=== PATIENT | female | born 1975 | race Two or more races ===

== ENCOUNTER 2017-04-12 12:24 | Emergency (ER) | payer MEDICAID ==
[~2017-04-12] VITALS: Ht 162.6 cm; Wt 75.3 kg
[2017-04-12 12:36] VITALS: BP 111/68
== END 2017-04-12 14:12 | disposition home or self-care (01) ==
LOC: ER 12:24
DX: J03.90 Acute tonsillitis, unspecified (principal)

== ENCOUNTER 2017-10-31 15:15 | Emergency (ER) | payer MEDICAID ==
[~2017-10-31] VITALS: Ht 162.6 cm; Wt 76.2 kg
[2017-10-31 15:49] VITALS: BP 120/74
[2017-10-31] MEDS ORDERED: KETOROLAC TROMETH 60MG/2ML VIAL IM ONE (16:15)
== END 2017-10-31 16:32 | disposition home or self-care (01) ==
LOC: ER 15:20
DX: S39.012A Strain of muscle, fascia and tendon of lower back, initial encounter (principal); X50.0XXA Overexertion from strenuous movement or load, initial encounter; Y93.89 Activity, other specified; Y92.89 Other specified places as the place of occurrence of the external cause; Y99.8 Other external cause status

== ENCOUNTER 2024-03-30 16:44 | Emergency (ER) | payer MEDICAID, OTHER ==
[~2024-03-30] VITALS: Ht 165.1 cm; Wt 79.7 kg
[2024-03-30 17:25] VITALS: BP 102/78; PULSE 78; RESP 15; O2SAT 95
== END 2024-03-31 00:38 | disposition left against medical advice (07) ==
LOC: ER 16:44
DX: M79.10 Myalgia, unspecified site (principal); J02.9 Acute pharyngitis, unspecified; R05.9 Cough, unspecified; Z53.21 Procedure and treatment not carried out due to patient leaving prior to being seen by health care provider
CPT/HCPCS: 71046

== ENCOUNTER 2025-10-11 03:21 | Inpatient (IN) | payer MEDICAID ==
[~2025-10-11] VITALS: Ht 162.6 cm; Wt 78.0 kg
[2025-10-11 04:00] VITALS: PULSE 78; RESP 18; O2SAT 98
[2025-10-11] MEDS: ONDANSETRON HCL 4 MG/2 ML VIAL IV ONE (04:05)
[2025-10-11] MEDS: KETOROLAC TROMETH 30 MG/ML 1ML VIAL IV ONE (04:05)
[2025-10-11] MEDS: SODIUM CHLORIDE 0.9% 1,000 ML IV ONE (04:06)
--- NOTE | 2025-10-11 04:16 | DVH ---
MEDICAL RECORDS NUMBER: [id number] PROCEDURE: CT CT AB PEL WO CON-NO ORAL OR IV DATE: 10/11/2025 03:43 AM HISTORY: right flank pain TECHNIQUE: CT of the abdomen and pelvis is performed without IV contrast. CONTRAST: none Oral Contrast: No oral contrast was utilized. COMPARISON: None RADIATION DOSE INFORMATION: Automated exposure control dose reduction techniques were used. FINDINGS: Lung bases: Limited evaluation of the lung bases demonstrates no focal airspace process or pneumothorax. Mediastinum:Lower mediastinal structures appear unremarkable. Liver: The liver is normal in size. There is no focal liver lesion. Biliary ducts: There is no evidence of intrahepatic or extrahepatic biliary ductal dilatation. Gallbladder: No abnormality is seen of the gallbladder. Spleen: The spleen is normal in size without focal lesion. Stomach: The stomach appears unremarkable. Pancreas: The pancreas is unremarkable. Adrenal glands: The adrenal glands are unremarkable. 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 Stranding is seen around the right kidney. There is a 5 mm stone at the right ureteral pelvic junction. Left kidney and ureter appear unremarkable. Aorta and IVC: The aorta and IVC are patent and are normal in size. Mesenteric vessels: Major mesenteric vessels appear to be intact. Bowel: The visualized portions of the small and large bowel are normal in caliber. Appendix: The appendix is unremarkable. Pelvis:Pelvic structures appear unremarkable. Lymph nodes: There is no evidence of lymphadenopathy. Osseous structures: The osseous structures are intact. No lytic or blastic osseous lesion is noted. Free fluid/free air: None IMPRESSION: 1. Moderate right hydronephrosis with a 5 mm stone at the right ureteropelvic junction.
[2025-10-11] MEDS: TAMSULOSIN HYDROCHLORIDE 0.4 MG CAP PO ONE (04:41)
--- NOTE | 2025-10-11 04:52 | ED.PDOC ---
General HPI Comments 50 Y/O FEMALE PT COMES WITH C/C OF RIGHT SIDED FLANK PAIN THAT RADIATES TO BACK WITH N/V, DYSURIA, FREQUENY AND URGENCY OF URINATION. PATIENT REPORTS 3 WEEKS AGO WAS SEEN IN [place] DX WITH KIDNEY STONE WAS PRESCRIBED FLOMAX FOR 5 DAYS AND SYMPTOMS RESOLVED FOR A FEW WEEKS. DENIES FEVERS, CHILLS, CHEST PAIN, SOB, OR URINE COMPLAINTS Chief Complaint: Flank Pain Time Seen by MD: 03:33 Primary Care Provider: UNKNOWN Reviewed notes: Nurses Notes, Medications, Allergies Allergies: Coded Allergies: NO KNOWN ALLERGIES (Unverified , 02/20/16) Home Meds Active Scripts Ergocalciferol (VITAMIN D 80642 UNIT) 50,[place], [address] UNIT PO QWEEKLY, #8 CAP Prov:BETHANY GALDAMEZ 10/12/25 Metformin Hydrochloride (Metformin Hcl) 500 Mg Tab, 1 TAB PO BID for 30 Days, #60 TAB 3 Refills Prov:BETHANY GALDAMEZ 10/12/25 Naproxen (Naproxen) 375 Mg Tab, 1 TAB PO BID for 5 Days, #10 TAB Prov:ODALIS PURCELL 10/12/25 Cephalexin (KEFLEX CAPSULE) 250 Mg Cp, 1 CAP PO QID for 5 Days, #28 CAP Prov:ODALIS PURCELL 10/12/25 Tamsulosin Hcl (Tamsulosin Hcl) 0.4 Mg Cap, 1 CAP PO DAILY for 30 Days, #30 CAP 5 Refills Prov:ODALIS PURCELL 10/12/25 Information Source: Patient Mode of Arrival: Ambulatory Past Medical History PAST MEDICAL HISTORY: Denies Surgical History: Denies all surgeries DIRECTOR OF PUPIL PERSONNEL PROGRAM History: No Pertinent DIRECTOR OF PUPIL PERSONNEL PROGRAM History Family History Family History: Unknown Social History Smoker: Non-Smoker Alcohol: Denies ETOH Use Drugs: Denies Drug Use Lives In: Home All Other Systems: Reviewed and Negative (see hpi) Physical Exam General Appearance: No Apparent Distress, Normal HEENT: Pharynx Normal Neck: Full Range of Motion, Non-Tender Respiratory: Lungs Clear, No Respiratory Distress, Normal Breath Sounds Cardiovascular: No Edema, No JVD, No Murmur, No Gallop, Normal Peripheral Pulses, Regular Rate/Rhythm Breast Exam: Deferred Gastrointestinal: No Organomegaly, Non Tender, No Pulsatile Mass, Normal Bowel Sounds, Soft, Other (TPP over Right Flank. NEG CVS Tenderness ) Genitalia: Deferred Pelvic: Deferred Rectal: Deferred Extremities: Normal capillary refill, Normal range of motion, No pedal edema Musculoskeletal : Apperance: Normal Neurologic: Alert, No Motor Deficits, Normal Affect, Normal Mood, No Sensory Deficits Cerebellar Function: Normal Reflexes: NOT DONE Skin: Dry, Normal Color, Warm Lymphatic: No Adenopathy Was a procedure done? Was a procedure done?: No Differential Diagnosis Kidney stone (Female): Pyelonephritis, Urinary obstruction, Urolithiasis Urinary Problem (Female): UTI X-Ray, Labs, Meds, VS Vital Signs Date Time Temp Pulse Resp B/P (MAP) Pulse Ox O2 Delivery O2 Flow Rate FiO2 10/11/25 06:59 98.2 79 16 142/82 (102) 94 98.2 10/11/25 04:00 99.1 78 18 137/58 (84) 98 99.1 10/11/25 04:00 78 18 98 Room Air* 0 21 10/11/25 03:29 98.6 82 16 151/84 96 98.6 Lab Test 10/11/25 05:03 10/11/25 03:33 Range/Units White Blood Count 10.0 4.4-10.8 10^3/uL Red Blood Count 4.44 4.0-5.20 10^6/uL Hemoglobin 12.7 12.2-16.2 g/dL Hematocrit 38.1 36.0-46.0 % Mean Corpuscular Volume 85.9 80.0-100.0 fL Mean Corpuscular Hemoglobin 28.7 28.0-32.0 pg Mean Corpuscular Hemoglobin Concent 33.5 32.0-36.0 g/dL Red Cell Distribution Width 13.9 11.8-14.3 % Platelet Count 238 140-450 10^3/uL Mean Platelet Volume 8.9 6.9-10.8 fL Neutrophils (%) (Auto) 81.0 H 37.0-80.0 % Lymphocytes (%) (Auto) 13.6 10.0-50.0 % Monocytes (%) (Auto) 4.2 0.0-12.0 % Eosinophils (%) (Auto) 0.7 0.0-7.0 % Basophils (%) (Auto) 0.5 0.0-2.0 % Neutrophils # (Auto) 8.1 1.6-8.6 10 ^3/uL Lymphocytes # (Auto) 1.4 0.4-5.4 10 ^3/uL Monocytes # (Auto) 0.4 0-1.3 10 ^3/uL Eosinophils # (Auto) 0.1 0-0.8 10 ^3/uL Basophils # (Auto) 0 0-0.2 10 ^3/uL Nucleated Red Blood Cells 0.1 % Sodium Level 139 136-145 mmol/L Potassium Level 4.4 3.5-5.1 mmol/L Chloride Level 102 98-107 mmol/L Carbon Dioxide Level 27 20-31 mmol/L Anion Gap 10 5-15 Blood Urea Nitrogen 13 9-23 mg/dL Creatinine 0.96 0.550-1.02 mg/dL Glomerular Filtration Rate Calc 73 >90 mL/min BUN/Creatinine Ratio 13.5 10.0-20.0 Serum Glucose 384 H 74-106 mg/dL Hemoglobin A1c 10.2 H <5.7 % A1C Calcium Level 9.4 8.7-10.4 mg/dL Total Bilirubin 0.3 0.2-1.0 mg/dL Aspartate Amino Transferase (AST) 75 H 13-40 U/L Alanine Aminotransferase (ALT) 122 H 7-40 U/L Alkaline Phosphatase 72 46-116 U/L Total Protein 7.3 5.7-8.2 g/dL Albumin 4.3 3.2-4.8 g/dL Urine Color Light-yellow Yellow Urine Clarity Clear Clear Urine pH 5.0 5.0-9.0 Urine Specific [place] 1.028 1.001-1.035 Urine Protein Negative Negative Urine Ketones Trace Negative Urine Blood 2+ H Negative /uL Urine Nitrite Negative Negative Urine Bilirubin Negative Negative Urine Urobilinogen Normal Negative mg/dL Urine Leukocyte Esterase Negative Negative /uL Urine RBC 17 0 - 4 /hpf Urine Microscopic WBC 4 0-5 /HPF Urine Squamous Epithelial Cells Few <5 /hpf Urine Bacteria None seen None Seen /hpf Urine Glucose 4+ H Normal mg/dL X-Ray, Labs, Meds, VS Comment Moderate hydronephrosis with a 5 mm stone at the right ureteropelvic junction. Patient continues with pain, failed out-patient treatment. Will place for admission for renal consult. Pending CBC and CMP. Patient agrees with plan of care. Images Reviewed?: Images reviewed and evaluated by me Time of 1ST Reevaluation: 03:33 Reevaluation 1ST: Unchanged Time of 2ND Reevaluation: 04:43 Reevaluation 2ND: Unchanged Patient Education/Counseling: Diagnosis, Treatment, Need For Follow Up Family Education/Counseling: No Family Present SEPSIS Sepsis Screen Date sepsis recognized/suspect: Oct 11, 2025 Time Sepsis recognized/suspect: 399 Recent Procedure: No On Antibiotic Therapy: No Respiratory Rate >20: No Heart Rate >90: No Temp<36 C (96.8 F) or >38.3 C: No SBP <90 or MAP <65 mmHG: No New Acute Mental Status Change: No Is the patient on CPAP, BIPAP,: No Physician Orders Ct Ab Pel Wo Con-No Oral Or Iv (10/11/25 03:33) Vital Signs Date Time Temp Pulse Resp B/P (MAP) Pulse Ox O2 Delivery O2 Flow Rate FiO2 10/11/25 06:59 98.2 79 16 142/82 (102) 94 98.2 10/11/25 04:00 99.1 78 18 137/58 (84) 98 99.1 10/11/25 04:00 78 18 98 Room Air* 0 21 10/11/25 03:29 98.6 82 16 151/84 96 98.6 Laboratory Tests Test 10/11/25 05:03 White Blood Count 10.0 10^3/uL (4.4-10.8) Departure 1 Departure Time of Disposition: 04:50 Impression: Primary Impression: Hydronephrosis with ureteropelvic junction (UPJ) obstruction Disposition: ADMITTED INPATIENT Condition: Guarded e-Prescriptions Ergocalciferol (VITAMIN D 46452 UNIT) 50,000 [place] [address] UNIT PO QWEEKLY, #8 CAP Prov: BETHANY GALDAMEZ 10/12/25 Metformin Hydrochloride (Metformin Hcl) 500 Mg Tab 1 TAB PO BID for 30 Days, #60 TAB 3 Refills Prov: BETHANY GALDAMEZ 10/12/25 Naproxen (Naproxen) 375 Mg Tab 1 TAB PO BID for 5 Days, #10 TAB Prov: ODALIS PURCELL 10/12/25 Cephalexin (KEFLEX CAPSULE) 250 Mg Cp 1 CAP PO QID for 5 Days, #28 CAP Prov: ODALIS PURCELL 10/12/25 Tamsulosin Hcl (Tamsulosin Hcl) 0.4 Mg Cap 1 CAP PO DAILY for 30 Days, #30 CAP 5 Refills Prov: ODALIS PURCELL RESIDENT 10/12/25 Discharged With: Self Critical Care Note Critical Care Time?: No Stability Stability form required: JONATHAN Marmolejo Oct 11, 2025 04:52
[2025-10-11 05:59] LABS: Hematocrit 38.1 % (36.0-46.0); Hemoglobin 12.7 g/dL (12.2-16.2); Mean Corpuscular Hemoglobin 28.7 pg (28.0-32.0); Mean Corpuscular Volume 85.9 fL (80.0-100.0); Nucleated Red Blood Cells % 0.1 %
[2025-10-11 06:10] LABS: Albumin 4.3 g/dL (3.2-4.8); Alkaline Phosphatase 72 U/L (46-116); Anion Gap 10 (5-15); BUN/Creatinine Ratio 13.5 (10.0-20.0); Blood Urea Nitrogen 13 mg/dL (9-23); Calcium 9.4 mg/dL (8.7-10.4); Carbon Dioxide 27 mmol/L (20-31); Chloride 102 mmol/L (98-107); Potassium 4.4 mmol/L (3.5-5.1); Sodium 139 mmol/L (136-145); Total Protein 7.3 g/dL (5.7-8.2)
[2025-10-11 06:11] LABS: Bilirubin, Total 0.3 mg/dL (0.2-1.0)
[2025-10-11 06:14] LABS: Urine Protein, UAD Negative (Negative)
[2025-10-11 06:14] LABS: Alanine Aminotransferase 122 U/L (7-40); Glucose 384 mg/dL (74-106)
[2025-10-11] MEDS ORDERED: DOCUSATE SOD 100 MG CAP PO PRN (08:45)
[2025-10-11] MEDS ORDERED: HYDROcodone-ACET 5/325MG TAB PO PRN (08:45)
[2025-10-11] MEDS ORDERED: MORPHINE SULFATE INJ 2 MG/ml SYRG IV PRN (08:45)
[2025-10-11] MEDS ORDERED: ONDANSETRON HCL 4 MG/2 ML VIAL IV PRN (08:45)
[2025-10-11 09:44] VITALS: PULSE 66; RESP 20; O2SAT 98
[2025-10-11] MEDS: SODIUM CHLORIDE 0.9% 1,000 ML IV SCH (09:44)
[2025-10-11] MEDS ORDERED: DEXTROSE (50%) 50ML SYRG IV PRN (10:15)
--- NOTE | 2025-10-11 10:21 | DVHHP2 ---
History of Present Illness Reason for Visit: Right flank pain History of Present Illness Yudelka Bermeo is a 50-year-old female who denies any significant past medical history, but also states she does not get seen regularly by a primary care provider, who came to the hospital for right sided flank pain. Patient was recently in [place] and diagnosed with a kidney stone. She was given a flomax for 5 days and her symptoms improved. She came to the ER early this morning due to the pain returning and worsening. Labs revelaled a blood sugar of 384. I asked the patient if she is diabetic and she said no. She also states that she does not follow up with a primary care provider. Past Surgical History: Other (left hand) Smoke: No ALCOHOL: none Drugs: None Lives: with Family Domestic Violence: Neg Review of Systems Constitutional: No: Fever, Chills, Sweats, Weakness, Malaise, Other Eyes: No: Pain, Vision change, Conjunctivae inflammation, Eyelid inflammation, Other, Redness ENT: No: Ear pain, Ear discharge, Nose pain, Nose discharge, Nose congestion, Mouth pain, Mouth swelling, Throat pain, Throat swelling, Other Respiratory: No: Cough, Dry, Shortness of breath, SOB with excertion, Wheezing, Hemoptysis, Pleuritic Pain, Sputum, Wheezing, Other Cardiovascular: No: Chest Pain, Palpitations, Orthopnea, Paroxysmal Noc. Dyspnea, Edema, Lt Headedness, Other Gastrointestinal: Nausea, Vomiting, Abdominal Pain (pelvis); No: Diarrhea, Constipation, Melena, Hematochezia, Other Genitourinary: No Dysuria, No Frequency, No Incontinence, No Hematuria, No Retention, No Other Musculoskeletal: back pain (right flank); No: other, neck pain, shoulder pain, arm pain, hand pain, leg pain, foot pain Skin: No: Rash, Lesions, Jaundice, Bruising, Other Neurological: No: Weakness, Numbness, Incoordination, Change in speech, Confusion, Seizures, Other Allergies: Coded Allergies: NO KNOWN ALLERGIES (Unverified , 02/20/16) Medications Current Medications Medications Dose Ordered Sig/Wil Route Start Time Stop Time Status Last Admin Dose Admin Sodium Chloride 1,000 ml @ 100 mls/hr Q10H IV 10/11/25 08:45 UNV Acetaminophen/ Hydrocodone Bitart 1 tab Q4HP PRN PO 10/11/25 08:45 UNV Ondansetron HCl 4 mg Q4HP PRN IV 10/11/25 08:45 UNV Docusate Sodium 100 mg BIDPRN PRN PO 10/11/25 08:45 UNV Acetaminophen 650 mg Q6HP PRN PO 10/11/25 08:45 UNV Morphine Sulfate 2 mg Q4HPRN PRN IV 10/11/25 08:45 UNV Exam Vital Signs Vital Signs Date Time Temp Pulse Resp B/P (MAP) Pulse Ox O2 Delivery O2 Flow Rate FiO2 10/11/25 06:59 98.2 79 16 142/82 (102) 94 98.2 10/11/25 04:00 Room Air* 0 21 General Appearance: Alert, Oriented X3, Cooperative, moderate distress HEENT: Atraumatic, PERRLA, Mucous membr. moist/pink Respiratory: Clear to auscultation, Normal air movement Cardiovascular: Regular rate, Normal S1, Normal S2, No murmurs Abdominal: Normal bowel sounds, Soft, Other (right flank pain that radiates to right pelvis) Extremities: No clubbing, No cyanosis, No edema, Normal pulses, No tenderness/ swelling Skin: No rashes, No breakdown, No significant lesion Neuro: Normal gait, Normal speech, Strength at 5/5 X4 ext, Normal tone Psych/Mental Status: Mental status NL, Mood NL Labs/Xrays Labs Test 10/11/25 05:03 10/11/25 03:33 Range/Units White Blood Count 10.0 4.4-10.8 10^3/uL Red Blood Count 4.44 4.0-5.20 10^6/uL Hemoglobin 12.7 12.2-16.2 g/dL Hematocrit 38.1 36.0-46.0 % Mean Corpuscular Volume 85.9 80.0-100.0 fL Mean Corpuscular Hemoglobin 28.7 28.0-32.0 pg Mean Corpuscular Hemoglobin Concent 33.5 32.0-36.0 g/dL Red Cell Distribution Width 13.9 11.8-14.3 % Platelet Count 238 140-450 10^3/uL Mean Platelet Volume 8.9 6.9-10.8 fL Neutrophils (%) (Auto) 81.0 H 37.0-80.0 % Lymphocytes (%) (Auto) 13.6 10.0-50.0 % Monocytes (%) (Auto) 4.2 0.0-12.0 % Eosinophils (%) (Auto) 0.7 0.0-7.0 % Basophils (%) (Auto) 0.5 0.0-2.0 % Neutrophils # (Auto) 8.1 1.6-8.6 10 ^3/uL Lymphocytes # (Auto) 1.4 0.4-5.4 10 ^3/uL Monocytes # (Auto) 0.4 0-1.3 10 ^3/uL Eosinophils # (Auto) 0.1 0-0.8 10 ^3/uL Basophils # (Auto) 0 0-0.2 10 ^3/uL Nucleated Red Blood Cells 0.1 % Sodium Level 139 136-145 mmol/L Potassium Level 4.4 3.5-5.1 mmol/L Chloride Level 102 98-107 mmol/L Carbon Dioxide Level 27 20-31 mmol/L Anion Gap 10 5-15 Blood Urea Nitrogen 13 9-23 mg/dL Creatinine 0.96 0.550-1.02 mg/dL Glomerular Filtration Rate Calc 73 >90 mL/min BUN/Creatinine Ratio 13.5 10.0-20.0 Serum Glucose 384 H 74-106 mg/dL Calcium Level 9.4 8.7-10.4 mg/dL Total Bilirubin 0.3 0.2-1.0 mg/dL Aspartate Amino Transferase (AST) 75 H 13-40 U/L Alanine Aminotransferase (ALT) 122 H 7-40 U/L Alkaline Phosphatase 72 46-116 U/L Total Protein 7.3 5.7-8.2 g/dL Albumin 4.3 3.2-4.8 g/dL Urine Color Light-yellow Yellow Urine Clarity Clear Clear Urine pH 5.0 5.0-9.0 Urine Specific [place] 1.028 1.001-1.035 Urine Protein Negative Negative Urine Ketones Trace Negative Urine Blood 2+ H Negative /uL Urine Nitrite Negative Negative Urine Bilirubin Negative Negative Urine Urobilinogen Normal Negative mg/dL Urine Leukocyte Esterase Negative Negative /uL Urine RBC 17 0 - 4 /hpf Urine Microscopic WBC 4 0-5 /HPF Urine Squamous Epithelial Cells Few <5 /hpf Urine Bacteria None seen None Seen /hpf Urine Glucose 4+ H Normal mg/dL PROCEDURE: CT CT AB PEL WO CON-NO ORAL OR IV FINDINGS: Lung bases: Limited evaluation of the lung bases demonstrates no focal airspace process or pneumothorax. Mediastinum:Lower mediastinal structures appear unremarkable. Liver: The liver is normal in size. There is no focal liver lesion. Biliary ducts: There is no evidence of intrahepatic or extrahepatic biliary ductal dilatation. Gallbladder: No abnormality is seen of the gallbladder. Spleen: The spleen is normal in size without focal lesion. Stomach: The stomach appears unremarkable. Pancreas: The pancreas is unremarkable. Adrenal glands: The adrenal glands are unremarkable. Kidneys: Moderate right Powell nephrosis is seen. Stranding is seen around the right kidney. There is a 5 mm stone at the right ureteral pelvic junction. Left kidney and ureter appear unremarkable. Aorta and IVC: The aorta and IVC are patent and are normal in size. Mesenteric vessels: Major mesenteric vessels appear to be intact. Bowel: The visualized portions of the small and large bowel are normal in caliber. Appendix: The appendix is unremarkable. Pelvis:Pelvic structures appear unremarkable. Lymph nodes: There is no evidence of lymphadenopathy. Osseous structures: The osseous structures are intact. No lytic or blastic osseous lesion is noted. Free fluid/free air: None IMPRESSION: 1. Moderate right hydronephrosis with a 5 mm stone at the right ureteropelvic junction. SEPSIS Sepsis Screen Date sepsis recognized/suspect: Oct 11, 2025 Time Sepsis recognized/suspect: 399 Recent Procedure: No On Antibiotic Therapy: No Respiratory Rate >20: No Heart Rate >90: No Temp<36 C (96.8 F) or >38.3 C: No SBP <90 or MAP <65 mmHG: No New Acute Mental Status Change: No Is the patient on CPAP, BIPAP,: No Physician Orders Ct Ab Pel Wo Con-No Oral Or Iv (10/11/25 03:33) Admit (10/11/25 08:39) Code Status (10/11/25 08:39) Sodium Chloride 0.9% (10/11/25 08:45) Hydrocodone-Acet 5/325mg Tab (Sieper 5/32 (10/11/25 08:45) Ondansetron Hcl (Zofran) (10/11/25 08:45) Docusate Sodium Capsule (Colace Capsule) (10/11/25 08:45) Complete Blood Count (10/12/25 04:00) Comprehensive Metabolic Panel (10/12/25 04:00) Condition: Serious (10/11/25 08:39) Acetaminophen Tablet (Tylenol Tablet) (10/11/25 08:45) Morphine Sulfate Injection (10/11/25 08:45) Hemoglobin A1c (10/11/25 08:43) Vital Signs Date Time Temp Pulse Resp B/P (MAP) Pulse Ox O2 Delivery O2 Flow Rate FiO2 10/11/25 06:59 98.2 79 16 142/82 (102) 94 98.2 10/11/25 04:00 99.1 78 18 137/58 (84) 98 99.1 10/11/25 04:00 78 18 98 Room Air* 0 21 10/11/25 03:29 98.6 82 16 151/84 96 98.6 Laboratory Tests Test 10/11/25 05:03 White Blood Count 10.0 10^3/uL (4.4-10.8) Medications Medications Dose Ordered Sig/Wil Route Start Time Stop Time Status Last Admin Dose Admin Ketorolac Tromethamine 30 mg ONCE ONCE IV 10/11/25 03:45 10/11/25 03:46 DC 10/11/25 04:05 30 MG Ondansetron HCl 4 mg ONCE ONCE IV 10/11/25 03:45 10/11/25 03:46 DC 10/11/25 04:05 4 MG Sodium Chloride 1,000 ml @ 1,000 mls/hr Q1H ONCE IV 10/11/25 03:45 10/11/25 04:44 DC 10/11/25 04:06 1,000 MLS/HR Tamsulosin HCl 0.4 mg ONCE ONCE PO 10/11/25 04:45 10/11/25 04:46 DC 10/11/25 04:41 0.4 MG Assessment/Plan Assessment/Plan Assessment: Hydronephrosis with ureteropelvic junction (UPJ) obstruction, Hyperglycemia, Transaminitis, New diagnosis diabetes, Plan: Admit to Med-Surg, Urology consult, IV antibiotics, IV hydration, Flomax, Pain management, A1c, Accu checks AC&HS with sliding scale, Plan discussed with: Patient My Orders Orders - EFRAIN GAMEZ [employer] Procedure Category Date Status Time Admit ADMIT 10/11/25 Transmitted 08:39 Code Status CODE 10/11/25 Transmitted 08:39 Sodium Chloride 0.9% PHA 10/11/25 Logged 08:45 Hydrocodone-Acet PHA 10/11/25 Logged 5/325mg Tab (Sieper 08:45 Ondansetron Hcl PHA 10/11/25 Logged (Zofran) 08:45 Docusate Sodium PHA 10/11/25 Logged Capsule (Colace 08:45 Complete Blood Count LAB 10/12/25 Verified 04:00 Comprehensive LAB 10/12/25 Verified Metabolic Panel 04:00 Condition: Serious ALEXYS 10/11/25 In Process 08:39 Acetaminophen Tablet PHA 10/11/25 Logged (Tylenol Tablet) 08:45 Morphine Sulfate PHA 10/11/25 Logged Injection 08:45 Hemoglobin A1c LAB 10/11/25 In Process 08:43 Date of Service: Oct 11, 2025 Billing Provider: EFRAIN GAMEZ Common Visit Codes: [id number] INP/OBS CARE (MOD) EFRAIN GAMEZ Oct 11, 2025 10:21
[2025-10-11] MEDS: InsuLIN REG 1unit/0.01ml Soln (100units/ml) SC SCH ×2 (11:30→21:58)
[2025-10-11] MEDS: ACCU-CHEK COMFORT CURVE STRIP VI SCH (11:30)
--- NOTE | 2025-10-11 11:33 | DVHINCON2 ---
Date of service: Oct 11, 2025 Referring Physician Hospitalist Reason for Consultation right UPJ stone with moderate hydronephrosis History of Present Illness History Source: Patient, RN Notes, MD Notes Exam Limitations: No limitations HPI 50-year-old female who denies any significant past medical history, but also states she does not get seen regularly by a primary care provider, who came to the hospital for right flank pain. She was dx with kidney stones recently while in [place]. CT revealed a 5 mm right upj stone with moderate hydro. renal function is preserved. no evidence of sepsis. A1c 10.2 pt denies hx of diabetes. Review of Systems Gastrointestinal: Abdominal Pain Genitourinary: Frequency, Pain H&P Exam Vital Signs Vital Signs Date Time Temp Pulse Resp B/P (MAP) Pulse Ox O2 Delivery O2 Flow Rate FiO2 10/11/25 09:44 66 20 98 Room Air* 0 21 10/11/25 09:43 97.9 140/79 (99) 97.9 General Appeara: Well developed, Well nourished, Normal Appearance Neuro/Mental St: Alert, Oriented Appearance: Appropriate appearance, Appropriate insight Eye contact/ Speech: Cooperative, Good eye contact, Normal speech Skin Exam: Normal inspection, Normal color, Warm/dry Labs/Xrays [place] [address] Ph: [phone] DIAGNOSTIC IMAGING Diagnostic Imaging Report : [id number] Signed PATIENT: CODY RYAN RACCT: [id number] UNIT: [id number] : 1975 LOC: ER ROOM / BED: / AGE / SEX: 50 / F ADM STATUS: REG ER SERVICE 0333 ORDERING PHYSICIAN: JONATHAN MORA PROCEDURE(s): ABPL - CT AB PEL WO CON-NO ORAL OR IV REASON: right flank pain ORDER NUMBER(s): [id number], ACCESSION NUMBER(s): [id number] MEDICAL RECORDS NUMBER: [id number] PROCEDURE: CT CT AB PEL WO CON-NO ORAL OR IV DATE: 10/11/2025 03:43 AM HISTORY: right flank pain TECHNIQUE: CT of the abdomen and pelvis is performed without IV contrast. CONTRAST: none Oral Contrast: No oral contrast was utilized. COMPARISON: None RADIATION DOSE INFORMATION: Automated exposure control dose reduction techniques were used. FINDINGS: Lung bases: Limited evaluation of the lung bases demonstrates no focal airspace process or pneumothorax. Mediastinum:Lower mediastinal structures appear unremarkable. Liver: The liver is normal in size. There is no focal liver lesion. Biliary ducts: There is no evidence of intrahepatic or extrahepatic biliary ductal dilatation. Gallbladder: No abnormality is seen of the gallbladder. Spleen: The spleen is normal in size without focal lesion. Stomach: The stomach appears unremarkable. Pancreas: The pancreas is unremarkable. Adrenal glands: The adrenal glands are unremarkable. Kidneys: Moderate right [place] nephrosis is seen. Stranding is seen around the right kidney. There is a 5 mm stone at the right ureteral pelvic junction. Left kidney and ureter appear unremarkable. Aorta and IVC: The aorta and IVC are patent and are normal in size. Mesenteric vessels: Major mesenteric vessels appear to be intact. Bowel: The visualized portions of the small and large bowel are normal in caliber. Appendix: The appendix is unremarkable. Pelvis:Pelvic structures appear unremarkable. Lymph nodes: There is no evidence of lymphadenopathy. Osseous structures: The osseous structures are intact. No lytic or blastic osseous lesion is noted. Free fluid/free air: None IMPRESSION: 1. Moderate right hydronephrosis with a 5 mm stone at the right ureteropelvic junction. ATED BY: JEFF LEDBETTER MD DICTATED DATE/TIME: 10/11/25412 SIGNED BY: JEFF LEDBETTER MD SIGNED DATE/TIME: 10/11/25412 CC: Labs Test 10/11/25 05:03 10/11/25 03:33 Range/Units White Blood Count 10.0 4.4-10.8 10^3/uL Red Blood Count 4.44 4.0-5.20 10^6/uL Hemoglobin 12.7 12.2-16.2 g/dL Hematocrit 38.1 36.0-46.0 % Mean Corpuscular Volume 85.9 80.0-100.0 fL Mean Corpuscular Hemoglobin 28.7 28.0-32.0 pg Mean Corpuscular Hemoglobin Concent 33.5 32.0-36.0 g/dL Red Cell Distribution Width 13.9 11.8-14.3 % Platelet Count 238 140-450 10^3/uL Mean Platelet Volume 8.9 6.9-10.8 fL Neutrophils (%) (Auto) 81.0 H 37.0-80.0 % Lymphocytes (%) (Auto) 13.6 10.0-50.0 % Monocytes (%) (Auto) 4.2 0.0-12.0 % Eosinophils (%) (Auto) 0.7 0.0-7.0 % Basophils (%) (Auto) 0.5 0.0-2.0 % Neutrophils # (Auto) 8.1 1.6-8.6 10 ^3/uL Lymphocytes # (Auto) 1.4 0.4-5.4 10 ^3/uL Monocytes # (Auto) 0.4 0-1.3 10 ^3/uL Eosinophils # (Auto) 0.1 0-0.8 10 ^3/uL Basophils # (Auto) 0 0-0.2 10 ^3/uL Nucleated Red Blood Cells 0.1 % Sodium Level 139 136-145 mmol/L Potassium Level 4.4 3.5-5.1 mmol/L Chloride Level 102 98-107 mmol/L Carbon Dioxide Level 27 20-31 mmol/L Anion Gap 10 5-15 Blood Urea Nitrogen 13 9-23 mg/dL Creatinine 0.96 0.550-1.02 mg/dL Glomerular Filtration Rate Calc 73 >90 mL/min BUN/Creatinine Ratio 13.5 10.0-20.0 Serum Glucose 384 H 74-106 mg/dL Hemoglobin A1c 10.2 H <5.7 % A1C Calcium Level 9.4 8.7-10.4 mg/dL Total Bilirubin 0.3 0.2-1.0 mg/dL Aspartate Amino Transferase (AST) 75 H 13-40 U/L Alanine Aminotransferase (ALT) 122 H 7-40 U/L Alkaline Phosphatase 72 46-116 U/L Total Protein 7.3 5.7-8.2 g/dL Albumin 4.3 3.2-4.8 g/dL Urine Color Light-yellow Yellow Urine Clarity Clear Clear Urine pH 5.0 5.0-9.0 Urine Specific [place] 1.028 1.001-1.035 Urine Protein Negative Negative Urine Ketones Trace Negative Urine Blood 2+ H Negative /uL Urine Nitrite Negative Negative Urine Bilirubin Negative Negative Urine Urobilinogen Normal Negative mg/dL Urine Leukocyte Esterase Negative Negative /uL Urine RBC 17 0 - 4 /hpf Urine Microscopic WBC 4 0-5 /HPF Urine Squamous Epithelial Cells Few <5 /hpf Urine Bacteria None seen None Seen /hpf Urine Glucose 4+ H Normal mg/dL Assessment/Plan Problem List: (1) Hydronephrosis with ureteropelvic junction (UPJ) obstruction Plan 50 yo female with newly diagnosed DMII c/o right flank pain found to have right upj stone measuring 5 mm with moderate hydro and normal renal function. Pain is controlled at this time no evidence of sepsis. expulsive therapy pain meds prn aggressive fluids strain urine lithotripsy vs nephrostomy vs outpt bladder US to check for jets Plan discussed with: Patient, Other BRENT PORTER NP Oct 11, 2025 11:33
[2025-10-11] MEDS: MANNITOL FTV 25% 12.5 GM/50 ML 50 ML IV ONE (13:51)
[2025-10-11] MEDS: TAMSULOSIN HYDROCHLORIDE 0.4 MG CAP PO SCH (18:20)
[2025-10-11 18:23] VITALS: RESP 18; O2SAT 99
[2025-10-11 21:00] VITALS: BP 130/63; PULSE 83; RESP 18; TEMP 98.4; O2SAT 96
[2025-10-12 01:00] VITALS: BP 122/61; PULSE 80; RESP 18; TEMP 98.7; O2SAT 93
[2025-10-12 05:00] VITALS: BP 122/67; PULSE 83; RESP 17; TEMP 98.6; O2SAT 92
[2025-10-12 07:19] LABS: Hematocrit 35.7 % (36.0-46.0); Hemoglobin 12.2 g/dL (12.2-16.2); Mean Corpuscular Hemoglobin 29.1 pg (28.0-32.0); Mean Corpuscular Volume 84.9 fL (80.0-100.0); Nucleated Red Blood Cells % 0.2 %
[2025-10-12 08:03] LABS: Albumin 3.8 g/dL (3.2-4.8); Alkaline Phosphatase 69 U/L (46-116); Anion Gap 12 (5-15); BUN/Creatinine Ratio 11.7 (10.0-20.0); Blood Urea Nitrogen 12 mg/dL (9-23); Calcium 8.8 mg/dL (8.7-10.4); Carbon Dioxide 24 mmol/L (20-31); Chloride 105 mmol/L (98-107); Potassium 3.7 mmol/L (3.5-5.1); Sodium 141 mmol/L (136-145); Total Protein 6.3 g/dL (5.7-8.2)
[2025-10-12 08:04] LABS: Alanine Aminotransferase 84 U/L (7-40); Bilirubin, Total 0.4 mg/dL (0.2-1.0); Glucose 188 mg/dL (74-106)
[2025-10-12 09:00] VITALS: BP 124/68; PULSE 90; RESP 16; TEMP 98.3; O2SAT 94
[2025-10-12 09:30] LABS: Magnesium 1.7 mg/dL (1.6-2.6)
--- NOTE | 2025-10-12 09:48 | DVH ---
CLINICAL HISTORY: Rule out hepatic steatosis/cirrhosis TECHNIQUE: Transabdominal sonogram was performed of the right upper quadrant. COMPARISON: None FINDINGS: The liver is normal in echogenicity. There is no focal parenchymal abnormality. No intrahepatic biliary ductal dilatation is present. The liver measures 21.4 cm. The gallbladder contains stones with no wall thickening or pericholecystic fluid. The sonographic jiang's sign was reported to be absent. The common bile duct is borderline dilated, measuring 6.7 mm. The visualized pancreas is grossly unremarkable. The right kidney measures 13.6 cm and the left kidney measures 11.6 cm in diameter. There is ddxt-pu-dwdaimpf right hydronephrosis. Is no focal parenchymal abnormality. IMPRESSION: Zlzh-gm-loszllzl right hydronephrosis. Diffuse hepatic steatosis. Cholelithiasis. Borderline dilated 6.7 mm common duct. Please correlate with laboratory values and consider MRCP if warranted.
--- NOTE | 2025-10-12 11:44 | DVHPNRES ---
Progress Note Date Seen: Oct 12, 2025 Resident Creating Document: BETHANY GALDAMEZ RESIDENT Subjective Review of Systems Yudelka Bermeo is a 50-year-old female who denies any significant past medical history, but also states she does not get seen regularly by a primary care provider, who came to the hospital for right sided flank pain. Patient was recently in [place] and diagnosed with a kidney stone. She was given a flomax for 5 days and her symptoms improved. She came to the ER early this morning due to the pain returning and worsening. Labs revelaled a blood sugar of 384. I asked the patient if she is diabetic and she said no. She also states that she does not follow up with a primary care provider. PMH- PSH- Allergy- Personal History/ Social History- Patient was seen today at the bedside. Patient Cardiovascular- deny acute chest pain or shortness of breath or cough or palpitation Respiratory denies cough or short of breath or wheezing Gastrointestinal- denies any rectal bleeding, nausea or vomiting Musculoskeletal-denies acute joint swelling or tenderness or redness Neurological- denies acute dysarthria, dysphagia, change in vision Psychiatry- denies depression or SI or HI Skin- denies acute rash or purpura Objective vital signs Vital Sign Date Time Temp Pulse Resp B/P (MAP) Pulse Ox O2 Delivery O2 Flow Rate FiO2 10/12/25 09:00 98.3 90 16 124/68 (86) 94 98.3 10/12/25 07:30 Room Air* 0 21 Total Intake and Output 10/11/25 10/11/25 10/12/25 15:00 23:00 07:00 Intake Total 1300 ml Balance 1300 ml medications Current Medications Medications Dose Ordered Sig/Wil Route Start Time Stop Time Status Last Admin Dose Admin Sodium Chloride 1,000 ml @ 100 mls/hr Q10H IV 10/11/25 08:45 10/12/25 03:21 100 MLS/HR Acetaminophen/ Hydrocodone Bitart 1 tab Q4HP PRN PO 10/11/25 08:45 Ondansetron HCl 4 mg Q4HP PRN IV 10/11/25 08:45 Docusate Sodium 100 mg BIDPRN PRN PO 10/11/25 08:45 Acetaminophen 650 mg Q6HP PRN PO 10/11/25 08:45 Morphine Sulfate 2 mg Q4HPRN PRN IV 10/11/25 08:45 Tamsulosin HCl 0.4 mg QPM PO 10/11/25 18:00 10/11/25 18:20 0.4 MG Diagnostic Test (Pha) 1 strip ACHS 10/11/25 11:30 10/12/25 06:11 1 STRIP Insulin Human Regular HS SC 10/11/25 22:00 10/11/25 21:58 6 UNITS Insulin Human Regular AC SC 10/11/25 11:30 10/12/25 06:17 3 UNITS Dextrose 50 ml UD PRN IV 10/11/25 10:15 Ceftriaxone Sodium 50 ml @ 100 mls/hr DAILY@09 IV 10/12/25 09:00 10/12/25 09:00 100 MLS/HR Insulin Glargine 10 units QAM SC 10/13/25 07:00 Examination General examination- HEENT- PEERLA, no acute nasal discharge Cardiovascular- S1-S2 audible, rate and rhythm regular, no murmur Respiratory- CTAB, no wheeze or rhonchi Gastrointestinal-nontender, bowel sound+. Nondistended Musculoskeletal-no acute joint swelling or tenderness or redness Lower extremity- Neurological- cranial nerves intact, no acute dysarthria or dysphagia Psychiatry- denies depression or SI or HI Skin- no acute rash or purpura laboratory and microbiology Laboratory Tests 10/12/25 06:44 Test 10/12/25 06:44 Range/Units Serum Glucose 188 H 74-106 mg/dL Problem List/Assessment/Plan Problem List/Assessment/Plan Goals of care, Code status ; discussed with >15 minutes PUD prophylaxis: DVT prophylaxis: Plan discussed with Dr , nursing staff, Total time spent on patient evaluation, chart review, assessment and plan, discussion discussion >35 minutes Plan discussed with: Patient, Other (RN) My Orders My Orders Orders - BETHANY GALDAMEZ Procedure Category Date Status Time Insulin Lantus PHA 10/13/25 In Process (Glargine) (Lantus) 07:00 LIVER US 10/12/25 Resulted 08:20 BETHANY GALDAMEZ Oct 12, 2025 11:44
[2025-10-12 12:30] VITALS: BP 130/68; PULSE 94; RESP 16; TEMP 98.5; O2SAT 95
[2025-10-12] MEDS: ERGOCALCIFEROL 50,000 UNIT(1.25MG) CAP PO SCH (12:51)
--- NOTE | 2025-10-12 13:21 | DVH ---
Exam: US BLADDER History: NEPHROLITHIASIS WITH HYDRONEPHROSIS Comparison: None Date: 10/12/2025 11:56 AM Technique: Grayscale and color Doppler ultrasound of the pelvis was obtained. Pre-and postvoid images of the bladder were obtained. Findings: Prevoid bladder is well distended and unremarkable. The postvoid bladder, demonstrates no significant post void residual. IMPRESSION: No significant post void residual noted. Distended bladder measuring 214 cc END IMPRESSION:
[2025-10-12] MEDS ORDERED: CEPH250C PO (16:35)
[2025-10-12] MEDS ORDERED: NAPR-957 PO (16:35)
[2025-10-12] MEDS ORDERED: TAMS0.4C39 PO (16:35)
[2025-10-12 16:53] VITALS: BP 135/66; PULSE 86; RESP 16; TEMP 98.7; O2SAT 95
[2025-10-12 17:00] VITALS: BP 135/66; PULSE 86; RESP 16; TEMP 98.7; O2SAT 95
[2025-10-12] MEDS: ACETAMINOPHEN 325 MG TAB PO PRN (18:13)
--- NOTE | 2025-10-12 20:50 | DVHDSRES ---
Discharge Summary Date of Admission Resident Creating Document: BETHANY GALDAMEZ RESIDENT Oct 11, 2025 at 08:39 Date of Discharge: Oct 12, 2025 Admitting Diagnosis Intractable abdominal pain due to Nephrolothiasis DM 2 with Hyperglycemia New one set Labs/Diagnostic Data: Laboratory Results Test 10/12/25 16:47 10/12/25 06:44 10/11/25 05:03 10/11/25 03:33 POC Glucose 195 mg/dl (70-106) White Blood Count 8.7 10^3/uL (4.4-10.8) Red Blood Count 4.20 10^6/uL (4.0-5.20) Hemoglobin 12.2 g/dL (12.2-16.2) Hematocrit 35.7 % (36.0-46.0) Mean Corpuscular Volume 84.9 fL (80.0-100.0) Mean Corpuscular Hemoglobin 29.1 pg (28.0-32.0) Mean Corpuscular Hemoglobin Concent 34.2 g/dL (32.0-36.0) Red Cell Distribution Width 13.6 % (11.8-14.3) Platelet Count 205 10^3/uL (140-450) Mean Platelet Volume 8.7 fL (6.9-10.8) Neutrophils (%) (Auto) 67.6 % (37.0-80.0) Lymphocytes (%) (Auto) 23.7 % (10.0-50.0) Monocytes (%) (Auto) 6.9 % (0.0-12.0) Eosinophils (%) (Auto) 1.3 % (0.0-7.0) Basophils (%) (Auto) 0.5 % (0.0-2.0) Neutrophils # (Auto) 5.9 10 ^3/uL (1.6-8.6) Lymphocytes # (Auto) 2.1 10 ^3/uL (0.4-5.4) Monocytes # (Auto) 0.6 10 ^3/uL (0-1.3) Eosinophils # (Auto) 0.1 10 ^3/uL (0-0.8) Basophils # (Auto) 0 10 ^3/uL (0-0.2) Nucleated Red Blood Cells 0.2 % Sodium Level 141 mmol/L (136-145) Potassium Level 3.7 mmol/L (3.5-5.1) Chloride Level 105 mmol/L (98-107) Carbon Dioxide Level 24 mmol/L (20-31) Anion Gap 12 (5-15) Blood Urea Nitrogen 12 mg/dL (9-23) Creatinine 1.03 mg/dL (0.550-1.02) Glomerular Filtration Rate Calc 67 mL/min (>90) BUN/Creatinine Ratio 11.7 (10.0-20.0) Serum Glucose 188 mg/dL (74-106) Calcium Level 8.8 mg/dL (8.7-10.4) Phosphorus Level 3.3 mg/dL (2.4-5.1) Magnesium Level 1.7 mg/dL (1.6-2.6) Total Bilirubin 0.4 mg/dL (0.2-1.0) Aspartate Amino Transferase (AST) 43 U/L (13-40) Alanine Aminotransferase (ALT) 84 U/L (7-40) Alkaline Phosphatase 69 U/L (46-116) Total Protein 6.3 g/dL (5.7-8.2) Albumin 3.8 g/dL (3.2-4.8) Vitamin B12 Level 401 pg/mL (211-911) Vitamin D 25-Hydroxy 27.1 ng/mL (30.0-100) Folic Acid 13.54 ng/mL (>5.38) Thyroid Stimulating Hormone (TSH) 2.44 uIU/mL (0.55-4.78) Hemoglobin A1c 10.2 % A1C (<5.7) Urine Color Light-yellow (Yellow) Urine Clarity Clear (Clear) Urine pH 5.0 (5.0-9.0) Urine Specific [place] 1.028 (1.001-1.035) Urine Protein Negative (Negative) Urine Ketones Trace (Negative) Urine Blood 2+ /uL (Negative) Urine Nitrite Negative (Negative) Urine Bilirubin Negative (Negative) Urine Urobilinogen Normal mg/dL (Negative) Urine Leukocyte Esterase Negative /uL (Negative) Urine RBC 17 /hpf (0 - 4) Urine Microscopic WBC 4 /HPF (0-5) Urine Squamous Epithelial Cells Few /hpf (<5) Urine Bacteria None seen /hpf (None Seen) Urine Glucose 4+ mg/dL (Normal) Other Laboratory Tests 10/12/25 06:44 Brief Hx & Hospital Course: Forman Guy, Yudelka is a 50-year-old female who denies any significant past medical history, but also states she does not get seen regularly by a primary care provider, who came to the hospital for right sided flank pain. Patient was recently in [place] and diagnosed with a kidney stone. She was given a flomax for 5 days and her symptoms improved. She came to the ER early this morning due to the pain returning and worsening. Labs revelaled a blood sugar of 384. I asked the patient if she is diabetic and she said no. She also states that she does not follow up with a primary care provider. Serum Glucose 384, HbA1c 10.2. CT Abdomen and Pelvis revealed Moderate right hydronephrosis with a 5 mm stone at the right ureteropelvic junction. Ultrasound of liver revealed -Ikop-kr-mecrxwsc right hydronephrosis. Diffuse hepatic steatosis. Cholelithiasis. Borderline dilated 6.7 mm common duct, Bladder Ultrasound No significant post void residual noted. Distended bladder measuring 214 cc. Patient was seen by Nephrology. Patient is being Discharged with Flomax, Ibuprofen and . Patient was adviced to folllow up at Discharge clinic, PCP and Urology. Hemodynamically stable on discharge. Operations or Procedures [place] [id number] Ph: [phone] DIAGNOSTIC IMAGING Diagnostic Imaging Report : [id number] Signed PATIENT: YUDELKA RYAN RACCT: [id number] UNIT: [id number] : 1975 LOC: ER ROOM / BED: / AGE / SEX: 50 / F ADM STATUS: REG ER SERVICE 0333 ORDERING PHYSICIAN: JONATHAN MORA PROCEDURE(s): ABPL - CT AB PEL WO CON-NO ORAL OR IV REASON: right flank pain ORDER NUMBER(s): [id number], ACCESSION NUMBER(s): [id number] MEDICAL RECORDS NUMBER: [id number] PROCEDURE: CT CT AB PEL WO CON-NO ORAL OR IV DATE: 10/11/2025 03:43 AM HISTORY: right flank pain TECHNIQUE: CT of the abdomen and pelvis is performed without IV contrast. CONTRAST: none Oral Contrast: No oral contrast was utilized. COMPARISON: None RADIATION DOSE INFORMATION: Automated exposure control dose reduction techniques were used. FINDINGS: Lung bases: Limited evaluation of the lung bases demonstrates no focal airspace process or pneumothorax. Mediastinum:Lower mediastinal structures appear unremarkable. Liver: The liver is normal in size. There is no focal liver lesion. Biliary ducts: There is no evidence of intrahepatic or extrahepatic biliary ductal dilatation. Gallbladder: No abnormality is seen of the gallbladder. Spleen: The spleen is normal in size without focal lesion. Stomach: The stomach appears unremarkable. Pancreas: The pancreas is unremarkable. Adrenal glands: The adrenal glands are unremarkable. Kidneys: Moderate right [place] nephrosis is seen. Stranding is seen around the right kidney. There is a 5 mm stone at the right ureteral pelvic junction. Left kidney and ureter appear unremarkable. Aorta and IVC: The aorta and IVC are patent and are normal in size. Mesenteric vessels: Major mesenteric vessels appear to be intact. Bowel: The visualized portions of the small and large bowel are normal in caliber. Appendix: The appendix is unremarkable. Pelvis:Pelvic structures appear unremarkable. Lymph nodes: There is no evidence of lymphadenopathy. Osseous structures: The osseous structures are intact. No lytic or blastic osseous lesion is noted. Free fluid/free air: None IMPRESSION: 1. Moderate right hydronephrosis with a 5 mm stone at the right ureteropelvic junction. ATED BY: JEFF LEDBETTER MD DICTATED DATE/TIME: 10/11/25412 SIGNED BY: JEFF LEDBETTER MD SIGNED DATE/TIME: 10/11/25412 CC: [place] [id number] Ph: [phone] DIAGNOSTIC IMAGING Diagnostic Imaging Report : [id number] Signed PATIENT: YUDELKA RYAN RACCT: [id number] UNIT: [id number] : 1975 LOC: OVERFLOW ROOM / BED: 1028-ER / A AGE / SEX: 50 / F ADM STATUS: ADM IN SERVICE 9 ORDERING PHYSICIAN: BETHANY GALDAMEZ RESIDENT PROCEDURE(s): LIVUS - LIVER REASON: Rule out hepatic steatosis/cirrhosis ORDER NUMBER(s): [id number], ACCESSION NUMBER(s): [id number] CLINICAL HISTORY: Rule out hepatic steatosis/cirrhosis TECHNIQUE: Transabdominal sonogram was performed of the right upper quadrant. COMPARISON: None FINDINGS: The liver is normal in echogenicity. There is no focal parenchymal abnormality. No intrahepatic biliary ductal dilatation is present. The liver measures 21.4 cm. The gallbladder contains stones with no wall thickening or pericholecystic fluid. The sonographic jiang's sign was reported to be absent. The common bile duct is borderline dilated, measuring 6.7 mm. The visualized pancreas is grossly unremarkable. The right kidney measures 13.6 cm and the left kidney measures 11.6 cm in diameter. There is beow-sn-ekjuwccd right hydronephrosis. Is no focal parenchymal abnormality. IMPRESSION: Ecko-ra-esrujeyp right hydronephrosis. Diffuse hepatic steatosis. Cholelithiasis. Borderline dilated 6.7 mm common duct. Please correlate with laboratory values and consider MRCP if warranted. ATED BY: ISAIAS HAIRSTON MD DICTATED DATE/TIME: 10/12/25944 SIGNED BY: ISAIAS HAIRSTON MD SIGNED DATE/TIME: 10/12/25944 CC: [place] [id number] Ph: [phone] DIAGNOSTIC IMAGING Diagnostic Imaging Report : [id number] Signed PATIENT: YUDELKA RYAN RACCT: [id number] UNIT: [id number] : 1975 LOC: OVERFLOW ROOM / BED: [address] [place] [address] AGE / SEX: 50 / F ADM STATUS: ADM IN SERVICE 1146 ORDERING PHYSICIAN: BETHANY GALDAMEZ RESIDENT PROCEDURE(s): BLDR - BLADDER REASON: NEPHROLITHIASIS WITH HYDRONEPHROSIS ORDER NUMBER(s): [id number], ACCESSION NUMBER(s): [id number] Exam: US BLADDER History: NEPHROLITHIASIS WITH HYDRONEPHROSIS Comparison: None Date: 10/12/2025 11:56 AM Technique: Grayscale and color Doppler ultrasound of the pelvis was obtained. Pre-and postvoid images of the bladder were obtained. Findings: Prevoid bladder is well distended and unremarkable. The postvoid bladder, demonstrates no significant post void residual. IMPRESSION: No significant post void residual noted. Distended bladder measuring 214 cc END IMPRESSION: ATED BY: MARÍA CHISHOLM MD DICTATED DATE/TIME: 10/12/25 1319 SIGNED BY: MARÍA CHISHOLM MD SIGNED DATE/TIME: 10/12/25 1319 CC: Condition at Discharge: Stable Final Diagnosis/Problems List Moderate right hydronephrosis 5 mm stone at the right ureteropelvic junction. . Diffuse hepatic steatosis. DM Type 2, New One set Cholelithiasis. Borderline dilated 6.7 mm common duct, Discharge Disposition: Home Discharge Instruct/Medications Diet: Consistent carbohydrate Activity: No Restrictions, As Tolerated Follow Up/Referral: dc clinic PCP Urology Medications: see prescription Scheduled Cephalexin (Keflex Capsule), 1 CAP PO QID Ergocalciferol (Vitamin D 26400 Unit), 50,000 UNIT PO QWEEKLY Metformin Hydrochloride (Metformin Hcl), 1 TAB PO BID Naproxen (Naproxen), 1 TAB PO BID Tamsulosin Hcl (Tamsulosin Hcl), 1 CAP PO DAILY Discharge Statement: "Patient was advised to return to the ER or call 911 if any headaches, dizziness, shortness of breath, chest pain, abdominal pain, bleeding, fevers, or worsening of medical condition. Patient was counseled about treatment plan, medications, possible side effects, patientverbalized understanding. All questions were answered to the best of my ability. This discharge took greater then 30 minutes in planning, reviewing documentation, counseling the patient, and discussing with other team members." ASSESSMENT ASSESSMENT Assessment kidney stone Date of Service: Oct 13, 2025 Billing Provider: SHAAN RESENDEZ DO Common Visit Codes: 13072-SON/OBS DISCH DAY >30min BETHANY GALDAMEZ RESIDENT Oct 12, 2025 20:50 SHAAN RESENDEZ DO Oct 13, 2025 00:03
[2025-10-12] MEDS ORDERED: METF-370 PO (22:12)
[2025-10-12] MEDS ORDERED: ERGO1CAP23 PO (22:17)
[2025-10-13] MEDS ORDERED: INSULIN LANTUS (GLARGINE) 1 /0.01ml (100units/ml) SC SCH (07:00)
== END 2025-10-12 18:30 | disposition home or self-care (01) | DRG 465 ==
LOC: ER 03:21 → OVERFLOW 08:39
PROVIDERS: ADMIT Internal Medicine; ATTEND Internal Medicine
DX: N13.2 Hydronephrosis with renal and ureteral calculous obstruction (principal); K83.8 Other specified diseases of biliary tract; E11.00 Type 2 diabetes mellitus with hyperosmolarity without nonketotic hyperglycemic-hyperosmolar coma (NKHHC); K76.0 Fatty (change of) liver, not elsewhere classified; N13.0 Hydronephrosis with ureteropelvic junction obstruction; K80.20 Calculus of gallbladder without cholecystitis without obstruction; N32.89 Other specified disorders of bladder; Z87.442 Personal history of urinary calculi
CPT/HCPCS: 36415; 74176; 76705; 76857; 80053; 81001; 82306; 82607; 82746; 82962; 83036; 83735; 84100; 84443; 85025; 96365; 96375; G0378; J1815; J1885; J2405